=== PATIENT | male | born 1935 | race Caucasian/White ===

== ENCOUNTER 2016-11-07 11:03 | Inpatient (IN) | payer OTHER, BC ==
[~2016-11-07] VITALS: Ht 152.4 cm; Wt 66.5 kg
--- NOTE | ~2016-11-07 | EKG ---
[place] [address] [facility] [place] [address] ELECTROCARDIOGRAM REPORT Name: AMENA FLETCHER Angelito Room #: 312-P ADM IN M.R.#: [id number] Admission: 11/07/16 Attend Phys: Jhoan Cook DO Discharge: Date of : 35 Report #: [id number] THIS REPORT FOR: //name// [facility] ED Test Date: 2016-11-07 Test Time: 11:37:43 Pat Name: AMENA FLETCHER Department: Room: [facility] Gender: M Actuarial Internship: Arron DIAMOND : 1935 Requested By: Andrae Singer Order Number: [id number] MD: Willy Petersen Measurements Intervals [place] Rate: 97 P: 62 MA: 205 QRS: -48 QRSD: 103 T: 96 QT: 390 QTc: 496 Interpretive Statements Sinus rhythm Left anterior fascicular block Borderline repolarization abnormality Poor R-wave progression Compared to ECG 10/14/2015 12:59:28 Left anterior fascicular block now present Sinus tachycardia no longer present Electronically Signed On 11-07-2016 15:53:28 CDT by Willy Petersen [email or web address] <ELECTRONICALLY SIGNED> By: Willy Petersen MD 11/07/16 1553 1137 1137 Willy Petersen MD /EPI
--- NOTE | ~2016-11-07 | HC ---
[facility] [place] [address] [place] [address] CONSULTATION Name: AMENA FLETCHER Room #: 312-P [facility] IN M.R.#: [id number] Admission: 11/07/16 Attend Phys: Jhoan Cook DO Discharge: 11/09/16 Date of : 35 Report #: [id number] THIS REPORT FOR: //name// CC: Jhoan Encarnacion REASON FOR CONSULTATION: End-stage renal disease. REASON FOR PRESENTATION: Nausea and vomiting. HISTORY OF PRESENT ILLNESS: The patient is well known to me. He is an end-stage renal disease patient maintained on hemodialysis every Tuesday, and Tuesday. He presented with GI symptoms in the form nausea and vomiting. Those had started a few days ago. There is no associated fever or chills. There is no hematemesis or melena. No previous similar episodes. He is admitted for further evaluation and management accordingly. The patient, as I have stated had a very complicated medical history including and not limited to diabetes mellitus, hypertension, recent stroke. He utilizes an AV fistula for his dialysis every Tuesday, and Tuesday. I was consulted to manage his ESRD related issues. PAST MEDICAL HISTORY: 1. End-stage renal disease. 2. Status post stroke. 3. Diabetes mellitus. 4. Hypertension. 5. Anemia of chronic disease. 6. Diabetic gastroparesis. MEDICATIONS: 1. Aspirin. 2. . 3. Folic acid. SOCIAL HISTORY: No drug or alcohol abuse. FAMILY HISTORY: Significant for diabetes mellitus and end-stage renal disease. REVIEW OF SYSTEMS: CONSTITUTIONAL: No fever or chills. PULMONARY: No cough or hemoptysis. GASTROINTESTINAL: As per the history of present illness. NEUROLOGIC: No weakness, no numbness, no tingling. PHYSICAL EXAMINATION: GENERAL: He is alert, oriented, in no apparent distress. VITAL SIGNS: Temperature 36.7, blood pressure 161/71. [facility] [address] [place] [address] CONSULTATION Name: AMENA FLETCHER Angelito Room #: 312-P [facility] IN [facility].#: [id number] Admission: 11/07/16 Attend Phys: Jhoan Cook DO Discharge: 11/09/16 Date of : 35 Report #: [id number] HEAD AND NECK: No jugular venous distention, no bruit, no thyromegaly. CHEST: Decreased air entry bilaterally. CARDIOVASCULAR: No rub detected. ABDOMEN: Soft, nontender with no hepatosplenomegaly. LOWER EXTREMITIES: No edema with intact peripheral pulses. LABORATORY VALUES: Reviewed. Chemistry from today revealed a BUN of 42 and creatinine of 7.7. IMAGING: Revealed a possible right hilar or infrahilar mass on his chest x-ray. CT abdomen and pelvis results were reviewed. ASSESSMENT, IMPRESSION AND PLAN: 1. End-stage renal disease. 2. Nausea and vomiting. 3. Constipation. 4. Diabetes mellitus. 5. Diabetic gastroparesis. 6. Possible hilar mass. 7. Hemodialysis will be arranged for tomorrow. 8. Ongoing GI workup for his nausea and vomiting. 9. Pulmonary consultation for his possible right hilar mass. 10. CT chest to evaluate the chest x-ray finding. 11. Symptomatic treatment for now. <ELECTRONICALLY SIGNED> By: Estrada Dee MD 11/12/16 0800 0848 1 Estrada Dee MD /nt
[~2016-11-07 11:03] MED LIST: ADULT LOW DOSE81 MG PO; AFLURIA 2045 MCG/0.9 IM; AMOXICILLIN500 M1 PO; ASPIRIN325 PO; AVANDIA PO; BENZONATATE; BENZONATATE200 MG PO; CATAPRESS3; CATAPRESS3 TD; COLACE 100 MG100 MG PO; COREG25 MG PO; DOXEPIN 10 MG C10 M1 PO; GLUCOPHAGE1000 MG PO; JANUVIA25 MG; LEVAQUIN 500 M500 M2 PO; LIPITOR 20 MG T20 M1 PO; NORVASC10 MG PO; PEPCID PO; PHENERGAN 25 MG25 M1 PO; PHOSLO667 M1 PO; PRANDIN2 MG PO; PROTONIX40 M2 PO; REGLAN 10 MG TA10 MG PO; REGLAN 5 MG TAB5 MG PO; RENO CAPS SOFTGE1 MG PO; SENNA8.6 MG PO; ZOFRAN ODT4 MG PO
[2016-11-07 11:13] VITALS: BP 183/89
[2016-11-07] MEDS ORDERED: VITAMIN D1000 UNI1 PO (11:18)
[2016-11-07 11:44] LABS: ABSOLUTE NEUTROPHILS 4.1 thou/uL (1.4-8.2); BASOPHILS 0.6 % (0.0-2.0); EOSINOPHILS 0.7 % (0.0-3.0); HEMATOCRIT 36.7 % (42.0-52.0); HEMOGLOBIN 12.8 gm/dL (14.0-18.0); LYMPHOCYTES 13.4 % (24.0-44.0); MCH 39.7 pg (26.0-34.0); MCHC 34.9 g/dL (28.0-37.0); MCV 113.5 fL (80.0-100.0); MONOCYTES 5.3 % (1.0-8.0); PLATELET COUNT 180 thou/uL (150-400); RBC 3.23 mil/uL (4.50-6.00); RDW 16.3 % (10.5-14.5); WBC 5.2 thou/uL (4.0-11.0)
[2016-11-07 11:46] LABS: MANUAL DIFF NO
[2016-11-07 11:48] LABS: CALCIUM 9.1 mg/dL (8.5-10.1); CREATININE 6.6 mg/dL (0.7-1.3); POTASSIUM 3.6 mmol/L (3.5-5.1)
[2016-11-07 11:57] LABS: ALBUMIN 4.5 g/dL (3.4-5.0); TOTAL BILIRUBIN 0.6 mg/dL (<0.1-1.0); TOTAL PROTEIN 8.3 g/dL (6.4-8.2); TROPONIN-I 0.04 ng/mL (<0.04-0.07)
[2016-11-07 12:34] LABS: ANISOCYTOSIS 1+; MACROCYTES 3+
[2016-11-07 14:07] VITALS: BP 166/78
[2016-11-07 14:33] VITALS: BP 171/68
[2016-11-07 15:30] VITALS: BP 172/90
[2016-11-07 20:00] VITALS: BP 157/76
[2016-11-08] VITALS: BP 126/61
[2016-11-08 04:00] VITALS: BP 152/69
[2016-11-08 05:31] LABS: ABSOLUTE NEUTROPHILS 4.6 thou/uL (1.4-8.2); BASOPHILS 0.5 % (0.0-2.0); EOSINOPHILS 1.3 % (0.0-3.0); HEMATOCRIT 35.7 % (42.0-52.0); HEMOGLOBIN 12.6 gm/dL (14.0-18.0); LYMPHOCYTES 12.3 % (24.0-44.0); MCH 39.5 pg (26.0-34.0); MCHC 35.2 g/dL (28.0-37.0); MCV 112.3 fL (80.0-100.0); MONOCYTES 6.5 % (1.0-8.0); PLATELET COUNT 177 thou/uL (150-400); POLYS 79.4 % (36.0-66.0); RBC 3.18 mil/uL (4.50-6.00); RDW 16.5 % (10.5-14.5); WBC 5.7 thou/uL (4.0-11.0)
[2016-11-08 05:43] LABS: MANUAL DIFF NO
[2016-11-08 05:48] LABS: CALCIUM 8.4 mg/dL (8.5-10.1); POTASSIUM 3.6 mmol/L (3.5-5.1)
[2016-11-08 05:52] LABS: CREATININE 7.7 mg/dL (0.7-1.3)
[2016-11-08 07:43] LABS: ANISOCYTOSIS 1+; MACROCYTES 2+
[2016-11-08 08:28] VITALS: BP 161/71
[2016-11-08 16:00] VITALS: BP 127/66
[2016-11-08 20:50] VITALS: BP 161/79
[2016-11-09 04:40] VITALS: BP 155/77
[2016-11-09 06:39] LABS: ABSOLUTE NEUTROPHILS 4.2 thou/uL (1.4-8.2); BASOPHILS 0.8 % (0.0-2.0); EOSINOPHILS 2.6 % (0.0-3.0); HEMATOCRIT 33.8 % (42.0-52.0); LYMPHOCYTES 20.4 % (24.0-44.0); MCH 39.5 pg (26.0-34.0); MCHC 35.5 g/dL (28.0-37.0); MCV 111.2 fL (80.0-100.0); MONOCYTES 5.6 % (1.0-8.0); PLATELET COUNT 177 thou/uL (150-400); POLYS 70.6 % (36.0-66.0); RBC 3.04 mil/uL (4.50-6.00); RDW 16.1 % (10.5-14.5)
[2016-11-09 06:41] LABS: MANUAL DIFF NO
[2016-11-09 06:51] LABS: CALCIUM 7.9 mg/dL (8.5-10.1); CREATININE 9.7 mg/dL (0.7-1.3); POTASSIUM 3.9 mmol/L (3.5-5.1)
[2016-11-09 08:16] LABS: ANISOCYTOSIS 1+; MACROCYTES 2+; PLATELET ESTIMATE NORMAL
[2016-11-09 13:45] VITALS: BP 128/65
[2016-11-09 16:00] VITALS: BP 121/66
[2016-11-09 20:18] VITALS: BP 95/53
== END 2016-11-09 20:30 | disposition short-term general hospital (02) | DRG 391 ==
LOC: ER 11:03 → 3N 13:44 → EROBS 13:44 → 3N 14:30
PROVIDERS: Emergency Medicine; Family Medicine
PROC: 5A1D00Z (ICD-10-PCS; principal; 2016-11-08)
DX: K59.00 Constipation, unspecified (principal); N18.6 End stage renal disease; M48.54XA Collapsed vertebra, not elsewhere classified, thoracic region, initial encounter for fracture; I12.0 Hypertensive chronic kidney disease with stage 5 chronic kidney disease or end stage renal disease; D32.1 Benign neoplasm of spinal meninges; E11.22 Type 2 diabetes mellitus with diabetic chronic kidney disease; E11.43 Type 2 diabetes mellitus with diabetic autonomic (poly)neuropathy; D64.9 Anemia, unspecified; K31.84 Gastroparesis; R22.2 Localized swelling, mass and lump, trunk; Z99.2 Dependence on renal dialysis; Z88.6 Allergy status to analgesic agent; Z87.891 Personal history of nicotine dependence; Z86.73 Personal history of transient ischemic attack (TIA), and cerebral infarction without residual deficits; Z98.49 Cataract extraction status, unspecified eye; Z79.4 Long term (current) use of insulin
CPT/HCPCS: 10096; 32100

== ENCOUNTER → 2016-11-26 | Outpatient (CLI) | payer OTHER, BC ==
[~2016-11-26] MED LIST changes: +VITAMIN D1000 UNI1 PO
[2016-11-26 09:51] LABS: CREATININE 5.4 mg/dL (0.7-1.3)
== END ==
LOC: MRI 08:28
PROVIDERS: Neurological Surgery
DX: G95.9 Disease of spinal cord, unspecified (principal)

== ENCOUNTER → 2017-01-05 | Outpatient (CLI) | payer OTHER, BC | LOC: MRI 07:27 | DX: G95.9 Disease of spinal cord, unspecified (principal) ==

== ENCOUNTER 2017-04-21 01:36 | Inpatient (IN) | payer OTHER ==
[2017-04-21] VITALS (13 sets, daily range): BP systolic 102–175; BP diastolic 50–90
[~2017-04-21] VITALS: Ht 165.1 cm; Wt 71.0 kg
--- NOTE | ~2017-04-21 | EKG ---
[place] [address] [facility] [place] [address] ELECTROCARDIOGRAM REPORT Name: JUSTINEAMENA D Room #: 170-7 ADM IN M.R.#: [id number] Admission: 04/21/17 Attend Phys: Adal Felix MD Discharge: Date of : 35 Report #: [id number] THIS REPORT FOR: //name// [facility] ED Test Date: 2017-04-21 Test Time: 04:50:06 Pat Name: AMENA FLETCHER Department: Room: 170 7 Gender: M Tank Truck Mechanic: GHAZALA : 1935 Requested By: Naina Napier Order Number: [id number] MD: Jeremie Ferrer Measurements Intervals [place] Rate: 84 P: 5 [place]: 186 QRS: -50 QRSD: 95 T: 123 QT: 400 QTc: 473 Interpretive Statements Sinus rhythm Left anterior fascicular block Anteroseptal infarct, age indeterminate T-wave abnormality, consider lateral ischemia Compared to ECG 11/07/2016 11:37:[address] and T wave abnormality is more pronounced Electronically Signed On 04-21-2017 8:03:52 CANE STRIPPER by Jeremie Ferrer [email or web address] <ELECTRONICALLY SIGNED> By: Jeremie Ferrer MD, [facility] 04/21/17 0803 0450 0450 Jeremie Ferrer MD, [facility] /EPI
--- NOTE | ~2017-04-21 | EKG ---
[place] [address] [facility] [place] [address] ELECTROCARDIOGRAM REPORT Name: AMENA FLETCHER Room #: 170-7 ADM IN M.R.#: [id number] Admission: 04/21/17 Attend Phys: Adal Felix MD Discharge: Date of : 35 Report #: [id number] THIS REPORT FOR: //name// [facility] ED Test Date: 2017-04-21 Test Time: 01:43:36 Pat Name: AMENA FLETCHER Department: Room: 170 Gender: M Buyer Liaison: MARGO : 1935 Requested By: Andrae Singer Order Number: [id number] MD: Jeremie Ferrer Measurements Intervals [place] Rate: 111 P: 0 [place]: 158 QRS: -51 QRSD: 101 T: 119 QT: 359 QTc: 488 Interpretive Statements Sinus tachycardia LAFB LVH with secondary repolarization abnormality Anterior infarct, old Compared to ECG 11/07/2016 11:37:43 No significant change was found Electronically Signed On 04-21-2017 8:00:50 COLLEGE PRESIDENT by Jeremie Ferrer [email or web address] <ELECTRONICALLY SIGNED> By: Jeremie Ferrer MD, [facility] 04/21/17 0800 0143 0143 Jeremie Ferrer MD, [facility] /EPI
--- NOTE | ~2017-04-21 | 2DMMODE ---
[facility] [address] [place] [address] 2 D/M-MODE ECHOCARDIOGRAM Name: AMENA FLETCHER Room #: 170-7 ADM IN [facility].#: [id number] Admission: 04/21/17 Attend Phys: Adal Felix MD Discharge: Date of : 35 Date of Service: 04/21/17 0939 Report #: [id number] THIS REPORT FOR: //name// APPROVED REPORT Study performed: 04/21/2017 08:14:16 EXAM: Comprehensive 2D, Doppler, and color-flow Echocardiogram Patient Location: ER Room #: 7 Status: routine BSA: 1.80 HR: 86 bpm BP: 96/69 mmHg Other Information Study Quality: Adequate Indications Diabetes Dyspnea Chest Pain Hypertension/HDD 2D Dimensions RVDd: 42.33 mm LVEF(%): 37.66 (>50%) IVSd: 9.87 (7-11mm) LVOT Diam: 19.23 (18-24mm) LVDd: 45.83 mm PWd: 9.84 (7-11mm) Ascending Ao: 31.56 (22-36mm) LVDs: 37.53 (25-40mm) Aortic Root: 29.07 mm IVC: 21.00 mm Manning's LVEF: 37.66 % Volumes Left Atrial Volume (Systole) Single Plane 4CH: 67.20 mL Single Plane 2CH: 55.11 mL LA ESV Index: 37.00 mL/m2 Aortic Valve AoV Peak Jaylen.: 1.20 m/s AO Peak Gr.: 5.77 mmHg LVOT Max P.89 mmHg LVOT Max V: 0.85 m/s BRIDGET Vmax: 2.05 cm2 Mitral Valve [facility] [place] [place] [address] 2 D/M-MODE ECHOCARDIOGRAM Name: AMENA FLETCHER Room #: 170-7 [facility] IN .R.#: [id number] Admission: 04/21/17 Attend Phys: Adal Felix MD Discharge: Date of : 35 Date of Service: 04/21/17 0939 Report #: [id number] E/A Ratio: 0.8 MV Decel. Time: 243.68 ms MV E Max Jaylen.: 1.03 m/s MV A Jaylen.: 1.26 m/s MV PHT: 70.67 ms IVRT: 131.49 ms Pulmonary Valve PV Peak Jaylen.: 0.95 m/s PV Peak Gr.: 3.60 mmHg Pulmonary Vein P Vein S: 0.20 m/s P Vein A: 0.37 m/s P Vein D: 0.41 m/s P Vein A Dur.: 90.0 msec P Vein S/D Ratio: 0.49 Tricuspid Valve TR Peak Jaylen.: 4.33 m/s TR Peak Gr.: 75.04 mmHg PA Pressure: 85.00 mmHg Left Ventricle The left ventricle is normal size. There is normal left ventricular wall thickness. Left ventricular ejection fraction is moderate to severely decreased. LVEF is 30%. Global hypokinesis, more pronounced involving the anterolateral wall, apex, and inferoapex Grade I - abnormal relaxation pattern. Right Ventricle Right ventricle is at the upper limits of normal. Right ventricular systolic function is at the lower limits of normal. Atria Left atrium is dilated. Small PFO is noted with color flow doppler. Right atrium is at the upper limits of normal. Aortic Valve Aortic valve is calcified. No aortic regurgitation is present. There is no aortic valvular stenosis. Mitral Valve Mild-moderate mitral annular calcification Moderate mitral regurgitation. No evidence of mitral valve stenosis. Tricuspid Valve The tricuspid valve is normal in structure. There is mild tricuspid regurgitation. Estimated PAP 80 mmHg. There is [place] [address] 2 D/M-MODE ECHOCARDIOGRAM Name: JUSTINEAMENA Angelito Room #: 170-7 ADM IN [facility]#: [id number] Admission: 04/21/17 Attend Phys: Adal Felix MD Discharge: Date of : 35 Date of Service: 04/21/17 0939 Report #: [id number] hypertension. Pulmonic Valve The pulmonary valve is normal in structure. Trace pulmonic regurgitation. Great Vessels The aortic root is normal in size. IVC is dilated and collapses <50% with inspiration. Pericardium There is no pericardial effusion. <Conclusion> Left ventricular ejection fraction is moderate to severely decreased. LVEF is 30%. Global hypokinesis, more pronounced involving the anterolateral wall, apex, and inferoapex Left atrium is dilated. Aortic valve is calcified. No aortic valvular stenosis or insufficiency. Mild-moderate mitral annular calcification. Moderate mitral regurgitation. There is mild tricuspid regurgitation. Estimated pulmonary artery pressure of 80 mmHg. There is no pericardial effusion. <ELECTRONICALLY SIGNED> By: Jeremie Ferrer MD, FACC 04/21/17938 8 8 Jeremie Ferrer MD, FACC /INF
--- NOTE | ~2017-04-21 | EKG ---
[address] [employer] [place] [address] ELECTROCARDIOGRAM REPORT Name: AMENA FLETCHER Room #: 201-P ADM IN M.R.#: [id number] Admission: 04/21/17 Attend Phys: Chepe Zhu MD Discharge: Date of : 35 Report #: [id number] THIS REPORT FOR: //name// [facility] Test Date: 2017-04-25 Test Time: 15:55:01 Pat Name: AMENA FLETCHER Department: Room: 201 P Gender: M Intel Recruiter: Riri LIMA : 1935 Requested By: Willy Petersen Order Number: [id number] MD: Jeremie Ferrer Measurements Intervals [place] Rate: 71 P: 11 [place]: 175 QRS: -48 QRSD: 97 T: 128 QT: 433 QTc: 471 Interpretive Statements Sinus rhythm Left anterior fascicular block Anteroseptal infarct, old Abnrm T, consider ischemia, anterolateral lds Compared to ECG 04/21/2017 04:50:06 No significant change was found Electronically Signed On 04-25-2017 17:08:02 GUM DIPPER by Jeremie Ferrer [email or web address] <ELECTRONICALLY SIGNED> By: Jeremie Ferrer MD, [facility] 04/25/17 1708 1555 1555 Jeremie Ferrer MD, [facility] /EPI
--- NOTE | ~2017-04-21 | EKG ---
[address] [address] ELECTROCARDIOGRAM REPORT Name: AMENA FLETCHER Room #: 201-P ADM IN M.R.#: [id number] Admission: 04/21/17 Attend Phys: Chepe Zhu MD Discharge: Date of : 35 Report #: [id number] THIS REPORT FOR: //name// [facility] Test Date: 2017-04-26 Test Time: 06:08:19 Pat Name: AMENA FLETCHER Department: Room: 201 P Gender: M Supervisor Fur Dressing: CARA : 1935 Requested By: Willy Petersen Order Number: [id number] MD: Cabrera Lopez Measurements Intervals [place] Rate: 78 P: 24 [place]: 173 QRS: -47 QRSD: 97 T: 118 QT: 432 QTc: 493 Interpretive Statements Sinus rhythm Left anterior fascicular block Anteroseptal infarct, age indeterminate Electronically Signed On 04-26-2017 7:49:22 COORDINATE MEASURING MACHINE PROGRAMMER by Cabrera Lopez [email or web address] <ELECTRONICALLY SIGNED> By: Cabrera Lopez MD 04/26/17 0749 0608 7 Cabrera Lopez MD /ACACIA
--- NOTE | ~2017-04-21 | CATHLAB ---
[facility] [place] [address] INVASIVE PROCEDURE REPORT Name: AMENA FLETCHER Room #: 201-P [facility] IN ..#: [id number] Admission: 04/21/17 Attend Phys: Chepe Zhu MD Discharge: Date of : 35 Date of Service: 04/21/17 1840 Report #: [id number] THIS REPORT FOR: //name// APPROVED REPORT Patient Details Patient Status: In-Patient Room #: The patient is a 82 year-old male Event Personnel Willy Petersen Physiotherapy Aide, Ledy Jansen Monitor, Crystal Miller Penny, Wes RN, Adri Oneill Cake Tester Procedures Performed Art Access - R femoral artery* 40918 Initial Mod Sed Same Phys/QHP Gr5y [id number] Left Heart Cath w/or w/o Coronaries [id number] [facility] Hemostasis with Manual pressure Indication CHF Current Status: , Non-STEMI , Chest pain Risk Factors Hypercholesterolemia, Hypertension, Dialysis Procedure Narrative The patient was brought urgently to the Cardiac Catheterization Laboratory and was prepped and draped in a sterile manner. The Right Groin^ was infiltrated with 1% Lidocaine subcutaneous anesthesia. A PINNACLE 4FR Sheath #[id number] sheath was inserted into the RFA^. Coronary angiography was performed using coronary diagnostic catheters. The right coronary system was accessed and visualized with a JR 4 catheter. The left coronary system was accessed and visualized with a JL 4 catheter. The left ventricle was accessed and visualized with a Pigtail catheter. Left ventricular/Aortic Valve gradient assessed via catheter pullback. Hemostasis was obtained with manual pressure following sheath removal without any complications. The patient tolerated the procedure well and there were no complications associated with the procedure. There was no hematoma. Intraoperative Conscious Sedation Sedation start time: 14:18 Case end Time: 14:37 Versed 0.5 mg [facility] [employer] [place] [address] INVASIVE PROCEDURE REPORT Name: AMENA FLETCHER Room #: 201-P [facility] IN ..#: [id number] Admission: 04/21/17 Attend Phys: Chepe Zhu MD Discharge: Date of : 35 Date of Service: 04/21/17 1840 Report #: [id number] Fluoro Time: 2.19 minutes Dose: DAP 4292.20 cGycm2 587 mGy Contrast Type and Amount: Omnipaque 75 ml Coronary Angiography The patient's coronary anatomy is right dominant. Diagnostic Cath Left Main Short segment, no flow limiting lesions. LAD Severe stenosis in the proximal segment, 70%. After the stenosis, the remaining segments of the LAD is a small to moderate size caliber vessel. Diagonal 1 Total occlusion at the ostium. Partial collateral filling of the distal segment. Circumflex Severe diffuse disease in the distal segment. OM1 Moderate size caliber vessel with a severe stenosis in the proximal segment, 80%. Right Coronary Moderate disease in the proximal segment, 40%. R PDA Small-caliber vessel with moderately severe diffuse disease in the mid and distal segments. RPLV Severe stenosis in the proximal segment, 80%. Ramus Severe stenosis in the proximal segment, 70%. Left Ventriculography Left Ventriculography was not performed. A pigtail catheter was used to measure the LVEDP and the gradient across the outflow tract. Hemodynamics The aortic pressure is 174/75 mmHg with a mean of 113 mmHg. The left ventricular pressure is 161/18 mmHg with a mean of mmHg. The left ventricular end diastolic pressure is 34 mmHg. Conclusion 1. Severe 3 vessel disease. 2. Ischemic cardiomyopathy. 3. Recommend CV surgical consultation. 4. Recommend staged PCI versus medical therapy. <ELECTRONICALLY SIGNED> By: Willy Petersen MD 04/21/171839 39 39 Willy Petersen MD /INF
--- NOTE | ~2017-04-21 | HC ---
[place] [address] CONSULTATION Name: AMENA FLETCHER Room #: 201-P [place] [place] IN .R.#: [id number] Admission: 04/21/17 Attend Phys: Chepe Zhu MD Discharge: Date of : 35 Report #: [id number] THIS REPORT FOR: //name// CC: Chepe Rees [facility] REASON FOR CONSULTATION: End-stage renal disease. REASON FOR THE PRESENTATION: Chest pain. HISTORY OF PRESENT ILLNESS: This is an 82-year-old who is diabetic and hypertensive. His end-stage renal disease is maintained on dialysis every Tuesday, and Tuesday. He is also known to have a spinal mass. He presented complaining of chest pain and tightness. This was radiating to his left upper extremity and associated with shortness of breath and palpitation. No syncope. This has been going on with him for the last 24 hours. No nausea or vomiting. No previous similar episodes. He suffers from numerous risk factors related to his coronary artery disease. He did not go to his dialysis treatment day before yesterday. Initial evaluation revealed an elevated troponin that is rising. Echo showed an ejection fraction of 30%. PAST MEDICAL HISTORY: 1. End-stage renal disease due to diabetes mellitus and hypertension. 2. CVA. 3. AV fistula placement. 4. Cataract surgery. 5. Spinal mass. SOCIAL HISTORY: No drug or alcohol abuse. FAMILY HISTORY: Significant for coronary artery disease. MEDICATIONS: 1. Aspirin. 2. Zofran. 3. Tizanidine. 4. Vitamin D. REVIEW OF SYSTEMS: GENERAL: No fever or chills. CARDIOVASCULAR: As per the history of present illness. PULMONARY: No cough or hemoptysis. GASTROINTESTINAL: Significant for nausea. MUSCULOSKELETAL: Occasional back pain. SKIN: No rash or ulcerations. [facility] [address] [place] [address] CONSULTATION Name: AMENA FLETCHER Room #: 201-P [place] IN [facility].#: [id number] Admission: 04/21/17 Attend Phys: Chepe Zhu MD Discharge: Date of : 35 Report #: [id number] PHYSICAL EXAMINATION: GENERAL: He is alert, oriented, in no apparent distress. VITAL SIGNS: Blood pressure 149/81. HEAD AND NECK: No jugular venous distention, no bruit, no thyromegaly. CHEST: Clear to auscultation bilaterally. CARDIOVASCULAR: Regular with no rub. ABDOMEN: Soft, nontender. LOWER EXTREMITIES: No edema. LABORATORY VALUES: Reviewed. Hemoglobin 10.1. Troponin is on the rise from 2.6 to 6.47. Sodium 139, potassium 5.1, BUN 100, creatinine 10.1. Chest x-ray consistent with pulmonary edema. ASSESSMENT, IMPRESSION, AND PLAN: 1. End-stage renal disease. 2. Diabetes mellitus. 3. Hypertension. 4. Non-ST elevation myocardial infarction. 5. Admission. 6. Routine cardiac care for an acute coronary syndrome. 7. Dialysis will be arranged for the patient with gentle fluid removal. 8. Discussed with the family his condition and his new heart failure, we will address accordingly with the dialysis nurses as an outpatient when the patient is ready to discharge post his cardiac care. <ELECTRONICALLY SIGNED> By: Estrada Dee MD 04/24/17 1505 1054 1245 Estrada Dee MD /nt
--- NOTE | ~2017-04-21 | EKG ---
[address] [address] ELECTROCARDIOGRAM REPORT Name: JUSTINEAMENA D Room #: 170-7 ADM IN M.R.#: [id number] Admission: 04/21/17 Attend Phys: Adal Felix MD Discharge: Date of : 35 Report #: [id number] THIS REPORT FOR: //name// [facility] ED Test Date: 2017-04-21 Test Time: 02:38:00 Pat Name: AMENA FLETCHER Department: Room: 170 Gender: M Workers' Compensation Magistrate: GHAZALA : 1935 Requested By: Andrae Singer Order Number: [id number] MD: Jeremie Ferrer Measurements Intervals [place] Rate: 113 P: SD: QRS: -56 QRSD: 98 T: 121 QT: 342 QTc: 469 Interpretive Statements Sinus tachycardia Left anterior fascicular block LVH with secondary repolarization abnormality Anterior infarct, old ST segment abnormality, consider lateral ischemia Compared to ECG 11/07/2016 11:37:43 No significant change was found Electronically Signed On 04-21-2017 8:02:35 DECONTAMINATION WORKER by Jeremie Ferrer [email or web address] <ELECTRONICALLY SIGNED> By: Jeremie Ferrer MD, [facility] 04/21/17 0802 0238 0238 Jeremie Ferrer MD, [facility] /EPI
--- NOTE | ~2017-04-21 | CATHLAB ---
[facility] [employer] [place] [address] INVASIVE PROCEDURE REPORT Name: AMENA FLETCHER Room #: 201-P [facility]#: [id number] Admission: 04/21/17 Attend Phys: Chepe Zhu MD Discharge: Date of : 35 Date of Service: 04/25/17 1551 Report #: [id number] THIS REPORT FOR: //name// APPROVED REPORT Patient Details Patient Status: In-Patient Room #: The patient is a 82 year-old male Event Personnel Willy Petersen Laboratory Development Technician, Ledy Jansen, Crystal Miller Monitor, Eduard Dawn RN, Adri Oneill Scrgerardo Procedures Performed Art Access - R femoral artery* Coronary Angiography Only [id number] CORANG CA Place w/wo Plasty Single LAD [id number] CA Place w/wo Plasty Single OM [id number] Indication Non-STEMI , Cardiomyopathy, Chest pain, The patient presents for staged angioplasty involving the LAD and left circumflex arteries. Please see previous cardiac catheterization for full details of the coronary anatomy. He was deemed a poor candidate for CABG. Risk Factors Hypercholesterolemia, Hypertension, Dialysis Procedure Narrative The patient was brought urgently to the Cardiac Catheterization Laboratory and was prepped and draped in a sterile manner. The RFG^ was infiltrated with 1% Lidocaine subcutaneous anesthesia. A PINNACLE 6FR Sheath #[id number] sheath was inserted into the RFA 6Fr.^. Coronary angiography was performed using coronary diagnostic catheters. The left coronary system was accessed and visualized with a VISTA 6FR JL4 #[id number] catheter. The patient tolerated the procedure well and there were no complications associated with the procedure. There was no hematoma. Intraoperative Conscious Sedation Sedation start time: 11:36 Case end Time: 13:05 Versed 0.5 mg Fluoro Time: 33.[address] [address] INVASIVE PROCEDURE REPORT Name: AMENA FLETCHER Room #: 201-P [facility] IN .R.#: [id number] Admission: 04/21/17 Attend Phys: Chepe Zhu MD Discharge: Date of : 35 Date of Service: 04/25/17 1551 Report #: [id number] Dose: 3133 mGy Contrast Type and Amount: Omnipaque 230 ml IVUS Anticoagulation was achieved with . Heparin Intravascular Ultrasound was performed on the mid left anterior descending artery segment vessel. Fractional Flow [place] was performed on the 95 vessel. A 3 Guide Catheter was used to engage the VISTA 6FR JL4 #[id number] ostium. A Luge Wire .014 x 182CM #[id number] was used. IVUS Findings Euphora RX 2.0 x 15 #[id number] Hemodynamics The aortic pressure is 181/68 mmHg with a mean of 114 mmHg. PCI Technique Lesion Anticoagulation was achieved with Heparin. Patient was preloaded with Plavix. Percutaneous coronary intervention was performed on the proximal left anterior descending artery segment. The lesion stenosis prior to intervention was 95% with INEZ 3 flow. A VISTA 6FR JL4 #850207 Guide Catheter was used to engage the ostium. A Luge Wire .014 x 182CM #[id number] Interventional Guidewire was used to cross the lesion. BALLOON DILATION A Balloon catheter Euphora RX 1.5 x 12 #[id number] was inserted and inflated up to 12.00atm for 18seconds. Additional Inflation: 16.00atm for 23seconds. Additional Inflation: 16.00atm for 14seconds. STENT DEPLOYMENT A drug-eluting stent RESOLUTE RX 2.25 X 18 #[id number] was inserted and inflated up to 9.00atm for 24seconds. POST STENT DEPLOYMENT BALLOON DILATION A Balloon catheter Euphora NC RX 2.5 x 12 #[id number] was inserted and inflated up to 8.00atm for 24seconds. Additional Inflation: 16.00atm for 27seconds. Final angiography reveals 5 % stenosis with INEZ 3 flow. PCI Technique Lesion Anticoagulation was achieved with Heparin. Patient was preloaded with Plavix. Percutaneous coronary intervention was performed on the mid left anterior descending artery segment. The lesion stenosis prior to intervention was 95% with INEZ 3 flow. A VISTA 6FR JL4 #[id number] Guide [address] [address] INVASIVE PROCEDURE REPORT Name: AMENA FLETCHER Room #: 201-P ADM IN [facility]#: [id number] Admission: 04/21/17 Attend Phys: Chepe Zhu MD Discharge: Date of : 35 Date of Service: 04/25/17 1551 Report #: [id number] Catheter was used to engage the ostium. A Luge Wire .014 x 182CM #[id number] Interventional Guidewire was used to cross the lesion. BALLOON DILATION A Balloon catheter Euphora RX 2.0 x 15 #[id number] was inserted and inflated up to 14.00atm for 34seconds. Additional Inflation: 10.00atm for 11seconds. STENT DEPLOYMENT A drug-eluting stent RESOLUTE RX 2.25 X 8 #[id number] was inserted and inflated up to 9.00atm for 27seconds. Additional Inflation: 14.00atm for 16seconds. This stent was placed distal to the first stent, in a overlapping fashion. POST STENT DEPLOYMENT BALLOON DILATION A Balloon catheter Euphora NC RX 2.5 x 12 #[id number] was inserted and inflated up to 12.00atm for 21seconds. Additional Inflation: 14.00atm for 19seconds. Final angiography reveals 5 % stenosis with INEZ 3 flow. PCI Technique Lesion 2 Percutaneous Coronary Intervention was performed on the first obtuse marginal branch segment. Patient was preloaded with Plavix. Percutaneous coronary intervention was performed on the first obtuse marginal branch segment. The lesion stenosis prior to intervention was 80% with INEZ 3 flow. A VISTA 6FR XB 3.5 #488522 Guide Catheter was used to engage the ostium. A Luge Wire .014 x 182CM #[id number] Interventional Guidewire was used to cross the lesion. Balloon Dilation A Balloon catheter Euphora RX 2.0 x 15 #[id number] was inserted and inflated up to 10.00atm for 22seconds. Additional Inflation: 10.00atm for 24seconds. Stent Deployment A drug-eluting stent RESOLUTE RX 2.25 X 18 #[id number] was inserted and inflated up to 10.00atm for 16seconds. Additional Inflation: 16.00atm for 15seconds. Post Stent Deployment Balloon Dilation A Balloon catheter Euphora RX 2.25 x 15 #[id number] was inserted and inflated up to 18.00atm for 15seconds. Additional Inflation: 18.00atm for 17seconds. [facility] [address] [place] [address] INVASIVE PROCEDURE REPORT Name: AMENA FLETCHER Room #: 201-P [facility] .R.#: [id number] Admission: 04/21/17 Attend Phys: Chepe Zhu MD Discharge: Date of : 35 Date of Service: 04/25/171550 Report #: [id number] Conclusion 1. Successful insertion of 2 drug-eluting stents in the proximal/mid LAD segment. 2. Successful insertion of a drug-eluting stent in the proximal segment of the first OM artery. 3. Recommend dual antiplatelet therapy. 4. Consider staged angioplasty versus medical therapy for the stenoses in the RCA. <ELECTRONICALLY SIGNED> By: Willy Petersen MD 04/25/171550 50 50 Willy Petersen MD /INF
[2017-04-21] MEDS ORDERED: AMOXICILLIN PO (01:48)
[2017-04-21 02:15] LABS: HEMATOCRIT 29.6 % (42.0-52.0); HEMOGLOBIN 10.1 gm/dL (14.0-18.0); MCH 41.9 pg (26.0-34.0); MCHC 34.3 g/dL (28.0-37.0); MCV 122.3 fL (80.0-100.0); RBC 2.42 mil/uL (4.50-6.00); RDW 15.8 % (10.5-14.5); WBC 7.9 thou/uL (4.0-11.0)
[2017-04-21 02:23] LABS: CREATININE 10.1 mg/dL (0.7-1.3); POTASSIUM 5.1 mmol/L (3.5-5.1)
[2017-04-21 02:33] LABS: TROPONIN-I 2.08 ng/mL (<0.06)
[2017-04-21] MEDS ORDERED: K-PHOS NEUTRAL250 MG PO (02:45)
[2017-04-21] MEDS ORDERED: ASPIRIN325 PO (02:45)
[2017-04-21 03:30] LABS: PROTIME 10.4 Seconds (9.3-11.4)
[2017-04-22] VITALS (7 sets, daily range): BP systolic 102–137; BP diastolic 50–80
[2017-04-22 03:39] LABS: POTASSIUM 4.1 mmol/L (3.5-5.1)
[2017-04-22 03:42] LABS: CREATININE 5.3 mg/dL (0.7-1.3)
[2017-04-22 03:45] LABS: HEMATOCRIT 25.9 % (42.0-52.0); HEMOGLOBIN 9.2 gm/dL (14.0-18.0); MCHC 35.8 g/dL (28.0-37.0); MCV 117.6 fL (80.0-100.0); RBC 2.2 mil/uL (4.50-6.00); WBC 5.5 thou/uL (4.0-11.0)
[2017-04-22 06:07] LABS: HEPATITIS B SURFACE AG Negative (Negative)
[2017-04-23] VITALS (7 sets, daily range): BP systolic 108–164; BP diastolic 48–88
[2017-04-24 03:52] LABS: HEMATOCRIT 26.6 % (42.0-52.0); HEMOGLOBIN 9.3 gm/dL (14.0-18.0); MCH 42.2 pg (26.0-34.0); MCHC 35.1 g/dL (28.0-37.0); MCV 120.1 fL (80.0-100.0); RBC 2.21 mil/uL (4.50-6.00); RDW 14.6 % (10.5-14.5); WBC 3.7 thou/uL (4.0-11.0)
[2017-04-24 04:00] VITALS: BP 121/46
[2017-04-24 04:12] LABS: ALBUMIN 3.1 g/dL (3.4-5.0); CALCIUM 7.8 mg/dL (8.5-10.1); CREATININE 4.8 mg/dL (0.7-1.3); POTASSIUM 4.3 mmol/L (3.5-5.1); TOTAL BILIRUBIN 0.4 mg/dL (<0.1-1.0); TOTAL PROTEIN 5.9 g/dL (6.4-8.2)
[2017-04-24 07:58] VITALS: BP 137/79
[2017-04-24 11:43] VITALS: BP 142/62
[2017-04-24 14:14] VITALS: BP 133/54
[2017-04-24 19:10] VITALS: BP 117/53
[2017-04-25] VITALS (7 sets, daily range): BP systolic 132–176; BP diastolic 62–80
[2017-04-25 02:56] LABS: HEMATOCRIT 27.4 % (42.0-52.0); HEMOGLOBIN 9.7 gm/dL (14.0-18.0); MCH 42.3 pg (26.0-34.0); MCHC 35.3 g/dL (28.0-37.0); MCV 119.7 fL (80.0-100.0); RBC 2.29 mil/uL (4.50-6.00); RDW 14.7 % (10.5-14.5); WBC 4.2 thou/uL (4.0-11.0)
[2017-04-26 03:35] LABS: CREATININE 8.5 mg/dL (0.7-1.3); POTASSIUM 5.9 mmol/L (3.5-5.1)
[2017-04-26 03:38] LABS: TROPONIN-I 2.34 ng/mL (<0.06)
[2017-04-26 03:50] VITALS: BP 106/56
[2017-04-26 04:40] LABS: HEMATOCRIT 29.8 % (42.0-52.0); HEMOGLOBIN 10.4 gm/dL (14.0-18.0); MCH 41.3 pg (26.0-34.0); MCV 118.5 fL (80.0-100.0); RBC 2.51 mil/uL (4.50-6.00); RDW 14.8 % (10.5-14.5); WBC 7.7 thou/uL (4.0-11.0)
[2017-04-26 04:43] LABS: MCHC 34.9 g/dL (28.0-37.0)
[2017-04-26 07:11] VITALS: BP 129/65
[2017-04-26 11:42] VITALS: BP 111/55
[2017-04-26 15:50] VITALS: BP 115/49
[2017-04-26 20:28] VITALS: BP 100/40
[2017-04-27 04:16] LABS: HEMATOCRIT 21.7 % (42.0-52.0); MCH 42.6 pg (26.0-34.0); MCHC 35.5 g/dL (28.0-37.0); MCV 119.7 fL (80.0-100.0); RBC 1.81 mil/uL (4.50-6.00); RDW 14.7 % (10.5-14.5); WBC 6.1 thou/uL (4.0-11.0)
[2017-04-27 04:19] LABS: HEMOGLOBIN 7.7 gm/dL (14.0-18.0)
[2017-04-27 04:30] VITALS: BP 99/37
[2017-04-27 07:27] VITALS: BP 116/53
[2017-04-27] MEDS ORDERED: CARVEDILOL6.25 MG PO (11:15)
[2017-04-27] MEDS ORDERED: LIPITOR40 MG PO (11:15)
[2017-04-27] MEDS ORDERED: CLOPIDOGREL75 MG PO (11:15)
[2017-04-27 11:59] VITALS: BP 101/48
[2017-04-27 15:10] VITALS: BP 103/51
[2017-04-27 15:57] VITALS: BP 121/54
[2017-04-27 20:26] VITALS: BP 115/52
[2017-04-28 05:31] VITALS: BP 129/57
[2017-04-28 08:00] VITALS: BP 151/75
[2017-04-28 11:30] VITALS: BP 135/59
[2017-04-28 12:47] VITALS: BP 135/59
[2017-04-28 14:41] VITALS: BP 135/59
[2017-04-28 15:01] VITALS: BP 135/59
== END 2017-04-28 15:05 | DRG 246 ==
LOC: ER 01:36 → 2N 03:19 → EROBS 03:19 → 2N 15:10 → ENTRNSPT 04-28 14:54 → EDTRNSPTSTS 04-28 14:58 → 2N 04-28 15:05
PROVIDERS: Emergency Medicine; Hospitalist; Internal Medicine Cardiovascular Disease; Nurse Practitioner Family
PROC: 4A023N7 Measurement of Cardiac Sampling and Pressure, Left Heart, Percutaneous Approach (ICD-10-PCS; principal; 2017-04-21)
PROC: B211YZZ Fluoroscopy of Multiple Coronary Arteries using Other Contrast (ICD-10-PCS; principal; 2017-04-21)
PROC: 5A1D70Z Performance of Urinary Filtration, Intermittent, Less than 6 Hours Per Day (ICD-10-PCS; principal; 2017-04-21)
PROC: 5A1D70Z Performance of Urinary Filtration, Intermittent, Less than 6 Hours Per Day (ICD-10-PCS; 2017-04-23)
PROC: 027136Z Dilation of Coronary Artery, Two Arteries with Three Drug-eluting Intraluminal Devices, Percutaneous Approach (ICD-10-PCS; 2017-04-25)
PROC: 5A1D70Z Performance of Urinary Filtration, Intermittent, Less than 6 Hours Per Day (ICD-10-PCS; 2017-04-26)
PROC: 5A1D70Z Performance of Urinary Filtration, Intermittent, Less than 6 Hours Per Day (ICD-10-PCS; 2017-04-28)
DX: I21.4 Non-ST elevation (NSTEMI) myocardial infarction (principal); N18.6 End stage renal disease; G95.9 Disease of spinal cord, unspecified; I69.953 Hemiplegia and hemiparesis following unspecified cerebrovascular disease affecting right non-dominant side; I12.0 Hypertensive chronic kidney disease with stage 5 chronic kidney disease or end stage renal disease; Z60.2 Problems related to living alone; I25.10 Atherosclerotic heart disease of native coronary artery without angina pectoris; E11.22 Type 2 diabetes mellitus with diabetic chronic kidney disease; D63.8 Anemia in other chronic diseases classified elsewhere; D69.6 Thrombocytopenia, unspecified; I25.5 Ischemic cardiomyopathy; Z98.49 Cataract extraction status, unspecified eye; Z88.6 Allergy status to analgesic agent; Z83.3 Family history of diabetes mellitus; Z82.3 Family history of stroke; Z87.891 Personal history of nicotine dependence; Z82.49 Family history of ischemic heart disease and other diseases of the circulatory system; Z79.82 Long term (current) use of aspirin; Z79.899 Other long term (current) drug therapy; Z99.2 Dependence on renal dialysis
CPT/HCPCS: 10081; 32100

== ENCOUNTER → 2017-08-08 | Outpatient (CLI) | payer OTHER, BC ==
[~2017-08-08] MED LIST changes: +AMOXICILLIN PO; +CARVEDILOL6.25 MG PO; +CLOPIDOGREL75 MG PO; +K-PHOS NEUTRAL250 MG PO; +LIPITOR40 MG PO
--- NOTE | ~2017-08-08 | 2DMMODE ---
[facility] [place] [address] 2 D/M-MODE ECHOCARDIOGRAM Name: AMENA FLETCHER Room #: REG [facility]#: [id number] Admission: 08/08/17 Attend Phys: Willy Petersen MD Discharge: Date of : 35 Date of Service: 08/08/17 1239 Report #: [id number] THIS REPORT FOR: //name// APPROVED REPORT Study performed: 08/08/2017 11:21:50 EXAM: Comprehensive 2D, Doppler, and color-flow Echocardiogram Patient Location: Out-Patient Status: routine BSA: 1.80 HR: 69 bpm BP: 163/80 mmHg Rhythm: NSR Other Information Study Quality: Adequate Indications CAD. HX: NSTEMI, stents, DM, CVA 2D Dimensions RVDd: 36.05 mm LVEF(%): 58.47 (>50%) IVSd: 12.04 (7-11mm) LVOT Diam: 19.82 (18-24mm) LVDd: 48.57 mm PWd: 10.77 (7-11mm) Ascending Ao: 31.59 (22-36mm) LVDs: 33.54 (25-40mm) Aortic Root: 33.21 mm Manning's LVEF: 58.47 % Volumes Left Atrial Volume (Systole) Single Plane 4CH: 60.34 mL Single Plane 2CH: 59.78 mL LA ESV Index: 37.00 mL/m2 Aortic Valve AoV Peak Jaylen.: 1.34 m/s AO Peak Gr.: 7.18 mmHg LVOT Max P.27 mmHg LVOT Max V: 0.90 m/s BRIDGET Vmax: 2.08 cm2 Mitral Valve E/A Ratio: 0.7 MV Decel. Time: 232.44 ms [facility] [place] [address] 2 D/M-MODE ECHOCARDIOGRAM Name: AMENA FLETCHER Room #: [facility]#: [id number] Admission: 08/08/17 Attend Phys: Willy Petersen MD Discharge: Date of : 35 Date of Service: 08/08/17 1239 Report #: [id number] MV E Max Jaylen.: 0.85 m/s MV A Jaylen.: 1.19 m/s MV PHT: 67.41 ms IVRT: 92.27 ms Pulmonary Valve PV Peak Jaylen.: 0.74 m/s PV Peak Gr.: 2.19 mmHg Pulmonary Vein P Vein S: 0.67 m/s P Vein A: 0.31 m/s P Vein D: 0.36 m/s P Vein A Dur.: 143.0 msec P Vein S/D Ratio: 1.86 Tricuspid Valve TR Peak Jaylen.: 3.23 m/s RAP Estimate: 5.00 mmHg TR Peak Gr.: 41.85 mmHg PA Pressure: 47.00 mmHg Left Ventricle The left ventricle is normal size. Hypokinesis of the mid to apical inferior wall. Mild septal hypertrophy. Left ventricular systolic function is mildly decreased. LVEF is 45-50%. Mild diastolic dysfunction is present (impaired relaxation pattern). Right Ventricle The right ventricle is normal size. The right ventricular systolic function is normal. Atria Left atrium is mildly dilated. The right atrium size is normal. Aortic Valve Aortic valve leaflets are mildly thickened and calcified. No aortic regurgitation is present. There is no aortic valvular stenosis. Mitral Valve Mitral valve leaflets are mildly thickened. Mild mitral annular calcification. Mild mitral regurgitation. No evidence of mitral valve stenosis. Tricuspid Valve The tricuspid valve is normal in structure. Mild tricuspid regurgitation. Estimated PAP is 45-50mmHg. [address] [address] 2 D/M-MODE ECHOCARDIOGRAM Name: AMENA FLETCHER Room #: REG [facility]#: [id number] Admission: 08/08/17 Attend Phys: Willy Petersen MD Discharge: Date of : 35 Date of Service: 08/08/17 1239 Report #: [id number] Pulmonic Valve The pulmonary valve is normal in structure. Trace pulmonic regurgitation. Great Vessels The aortic root is normal in size. The ascending aorta is normal in size. IVC is normal in size and collapses >50% with inspiration. Pericardium There is no pericardial effusion. <Conclusion> The left ventricle is normal size. Left ventricular systolic function is mildly decreased. Mild diastolic dysfunction is present (impaired relaxation pattern). The right ventricle is normal size. Left atrium is mildly dilated. Aortic valve leaflets are mildly thickened and calcified. Mild mitral regurgitation. Mild tricuspid regurgitation. Estimated PAP is 45-50mmHg. <ELECTRONICALLY SIGNED> By: Willy Petersen MD 08/08/17 1239 1239 1239 Willy Petersen MD /INF
== END ==
LOC: CV 07:10
DX: I08.1 Rheumatic disorders of both mitral and tricuspid valves (principal); I70.0 Atherosclerosis of aorta; E11.9 Type 2 diabetes mellitus without complications